=== PATIENT | female | born 1985 ===

== ENCOUNTER 2018-03-30 19:25 | Inpatient (IN) | payer OTHER ==
[2018-03-30 19:50] VITALS: BMI 31.0
[2018-03-30] MEDS ORDERED: Lactated Ringer's 1,000 ML IV ONE (19:50)
[2018-03-30] MEDS ORDERED: Lactated Ringer's 1,000 ML IV SCH (20:00)
[2018-03-30 23:11] LABS: BASO % 0.4 % (0.0-2.0); EOS % 0.6 % (0.0-4.0); HEMOGLOBIN 11.2 g/dL (12.0-16.0); LYMPH # 1.6 K/uL (1.0-4.3); LYMPH % 21.2 % (20.0-40.0); MEAN CELL VOLUME 89.3 fl (81.0-99.0); MEAN CORPUSCULAR HEMOGLOBIN 30.9 pg (27.0-31.0); MEAN CORPUSCULAR HGB CONC 34.6 g/dL (33.0-37.0); MEAN PLATELET VOLUME 9.2 fl (7.2-11.7); MONO # 0.6 K/uL (0.0-0.8); MONO % 8.2 % (0.0-10.0); NEUT # 5.2 K/uL (1.8-7.0); NEUT % 69.6 % (50.0-75.0); NRBC % 0.1 % (0.0-0.0); RBC 3.63 Mil/uL (3.80-5.20); RED CELL DISTRIBUTION WIDTH 14.3 % (11.5-14.5); WHITE BLOOD COUNT 7.5 K/uL (4.8-10.8)
--- NOTE | 2018-03-31 03:31 | OBADHP ---
Datetime: 03/31/2018 01:24 FHR - Baseline A Provider: 150 NICHD Variability Prov Fetus A: Moderate 6-25bpm NICHD Accel Fetus A IP Provider: 15X15 FHR Category Provider Fetus A: Category I NICHD Decel Fetus A IP Provider: None Datetime: 03/30/2018 19:53 Admit Comment, IP Provider: 33 yo with IUP at 38+1 based on KYM of 04/12/18 was sent to L _ D for induction of labor secondary to oligodramnios found on ultrasound. Patient follows with Dr. Infante and last appointment was last . She denies vaginal bleeding. contractions, loss of fluid and she reports good movement. Denies chest pain, shortness of breath, dysuria, nausea and vomitin g. ROS: systems reviewed and negative except for stated above in HPI. Obhx: 1 - 2011- no complications. Family hx: Mother with HTN and maternal grandmother with Pancreatic cancer. Social hx: No smoking history, drinking or illicit drug use. Surgical history: Umbilical hernia repair 1995 and Right ankle repair 2010- no complications from both surgies Allergies: N.K.D.A Medications: PNV Labs: HIV: negative HbsAG: negative Rubella: immune GBS: negative Gc/Cl: negative RPR: negative ABO: A antibody: negative TDAP: 02/16/18 Flu shot: 4 weeks ago Physical exam: Patient in no acute distress. Heart: S1 and S2 appreciated on exam. No murmurs, gallops or rubs. Lungs: Clear air entry bilaterally. Abdomen: Gravid, soft, non-tender to palpation. No CVA tenderness FHT: 150 baseline; moderate variability; acceleration 15 x 15 noted; no decelerations; category 1 tracing A/P: 33 yo with IUP at 38+1 based on KYM of 04/12/18 is here for induction of labor secondary to oligodramnios - Admit to L and D for induction of labor - Cbc - Type and Screen - 1 bolus of LR - continous monitoring. - Cervidil 10mg Vaginally for cervical ripening. Discussed case with Dr. Atkinson --Shannen Hidalgo, PGY1 Addendum: I saw and examined patient up presentation. Discussed induction process with patient all patient q uestions answered. heart tracing category 1. Pelvic Type - PN: Adequate Extremities - PN: Normal Abdomen - PN: Normal Back - PN: Normal Breast - PN: Not Done Lungs - PN: Normal Heart - PN: Normal Thyroid - PN: Not Done Neurologic - PN: Not Done HEENT - PN: Not Done General - PN: Normal Vital Signs Provider: Reviewed; Within Normal Limits IP Chief Complaint: Scheduled induction of labor Genitourinary Exam: Normal DTRs - PN: Not Done IP Adm Impression: Term, intrauterine IP Admit Plan: Admit to unit; Initiate labor induction protocol
[2018-03-31] MEDS ORDERED: Oxytocin 30 UNIT 30 UNITS/500 ML BAG IV ONE (07:56)
[2018-03-31] MEDS ORDERED: OXYTOCIN/0.9 % NS 20 UNIT/1,000 ML BAG IV SCH (08:00)
--- NOTE | 2018-03-31 13:27 | OBPN ---
Datetime: 03/31/2018 13:15 IP Progress Impression: Reassuring heart rate IP Informed Consent Obtain: Vaginal Delivery; Risks, Benefits and Alternatives Discussed IP Progress Plan: Continue present management; Induction; Cervical Ripening; Anticipate Vaginal Deli very Pool Provider: Negative Membranes, Provider: Intact Contraction Comments Provider: iireg FHR - Baseline A Provider: 140 Presentation-Admit: Vertex IP Progress Note Comment: She feels occ CTX pain - not uncomfortable SVE cervidil removed A: IUP at 38w ; Oligohydramnios PLAN: Disucssion about conitnued IOL...will start Cytotec 50mcg po q4h NICHD Accel Fetus A IP Provider: 15X15 FHR Category Provider Fetus A: Category I NICHD Variability Prov Fetus A: Moderate 6-25bpm Dilatation, Provider: 0 NICHD Decel Fetus A IP Provider: None Datetime: 03/31/2018 12:03 Vital Signs Provider: Reviewed; Within Normal Limits Datetime: 03/31/2018 01:24 IP Procedures: Sterile Vag Exam
[2018-03-31] MEDS: Lactated Ringer's 1,000 ML IV SCH (23:10)
--- NOTE | 2018-04-01 11:35 | OBPN ---
Datetime: 04/01/2018 11:35 IP Progress Impression: Reassuring heart rate IP Procedures: Sterile Vag Exam Datetime: 03/31/2018 21:28 IP Informed Consent Obtain: Induction of Labor IP Progress Plan: Cervical Ripening Contraction Comments Provider: Q3-4 min FHR - Baseline A Provider: 145 Gestation - Est Wks by US: 38.2 IP Progress Note Comment: S: Feeling regular cramping every few minutes, rates pain 4-5/10 O: see exam section A/P: 33 year old at 38.2 admitted for IOL secondary to IUGR. There has been some change in he r Rodriguez score but still not favorable for pitocin - Placed cervidil, will remove after 12 hours and hopefully start pitocin - EFM Category I, no intervention needed Augustina Olsen MD OB Fellow Attending Note: Patient was seen with the fellow and I agree with the above assessmment. Danny Vital Signs Provider: Reviewed; Within Normal Limits NICHD Accel Fetus A IP Provider: 15X15 FHR Category Provider Fetus A: Category I NICHD Variability Prov Fetus A: Moderate 6-25bpm Dilatation, Provider: 1 Effacement, Provider: 20 Station, Provider: -3 NICHD Decel Fetus A IP Provider: None
--- NOTE | 2018-04-01 11:40 | OBPN ---
Datetime: 04/01/2018 11:35 IP Procedures Other: Insertion of cooks Balloon IP Progress Plan: Continue present management FHR - Baseline A Provider: 150 Gestation - Est Wks by US: 38.3 Presentation-Admit: Vertex IP Progress Note Comment: Assessment: IUP at 38wks IOL for Oligohydramnios S/P cervidi X2, Cytotec X1 Patient refused further use of Cytotec. Plan: Cook Balloon inserted into the cervix for cervical ripening. Reevaluate in 4-6hours. NICHD Accel Fetus A IP Provider: 15X15 FHR Category Provider Fetus A: Category I NICHD Variability Prov Fetus A: Moderate 6-25bpm Dilatation, Provider: 1 Effacement, Provider: 60 Station, Provider: -3 NICHD Decel Fetus A IP Provider: None
[2018-04-01] MEDS ORDERED: Oxytocin 30 UNIT 30 UNITS/500 ML BAG IV ONE (16:24)
[2018-04-01] MEDS: Lactated Ringer's 1,000 ML IV SCH ×2 (16:37→23:30)
--- NOTE | 2018-04-01 16:45 | OBPN ---
Datetime: 04/01/2018 16:39 IP Progress Impression: Reassuring heart rate IP Procedures: Sterile Vag Exam IP Progress Plan: Continue present management; Augmentation Membranes, Provider: Intact Contraction Comments Provider: irregular FHR - Baseline A Provider: 150 Gestation - Est Wks by US: 38.3 Presentation-Admit: Vertex IP Progress Note Comment: IUP at 38weeks being induced S/p Cervidil X2, Cytotec X1 Cook balloon in place Patient reports mild contractions FHR category 1 Plan: Augmentation of labor with Pitocin May have epidural Vital Signs Provider: Reviewed NICHD Accel Fetus A IP Provider: 15X15 FHR Category Provider Fetus A: Category I NICHD Variability Prov Fetus A: Moderate 6-25bpm
--- NOTE | 2018-04-01 22:30 | OBPN ---
Datetime: 04/01/2018 22:23 IP Progress Impression: Reassuring heart rate IP Procedures: Artificial ROM; Sterile Vag Exam IP Progress Plan: Augmentation Membranes, Provider: Ruptured Amniotic Fluid Color, Provider: Clear Contraction Comments Provider: Q 2-5 FHR - Baseline A Provider: 150 Gestation - Est Wks by US: 38.3 Presentation-Admit: Vertex IP Progress Note Comment: IUP at 38+wks IOL for decreased fluid S/P Cytotec and cervidil Cook Balloon for cervical ripening fell out spontaneously SVE: 3-50/-3 AROM- done. clear fluid Plan: Continue labor augmentation with pitocin. NICHD Accel Fetus A IP Provider: 15X15 FHR Category Provider Fetus A: Category I NICHD Variability Prov Fetus A: Moderate 6-25bpm Dilatation, Provider: 3 Effacement, Provider: 50 Station, Provider: -3 NICHD Decel Fetus A IP Provider: None
[2018-04-02] MEDS ORDERED: Fentanyl/Bupivacaine HCl 250 ML EPI ONE (00:30)
[2018-04-02] MEDS: Lactated Ringer's 1,000 ML IV SCH (00:51)
[2018-04-02] MEDS ORDERED: Oxytocin 30 UNIT 30 UNITS/500 ML BAG IV ONE (04:05)
[2018-04-02] MEDS ORDERED: OXYTOCIN/0.9 % NS 20 UNIT/1,000 ML BAG IV ONE (07:39)
[2018-04-02] MEDS ORDERED: Benzocaine/Menthol SPRAY TOP PRN ×2 (09:46→15:50)
[2018-04-02] MEDS ORDERED: Oxycodone/Acetaminophen 5/325 mg Tab PO PRN ×2 (09:46→15:50)
--- NOTE | 2018-04-02 16:13 | OBDS ---
DELIVERY PERSONNEL Delivery Doctor: Shauna Delgado MD [employer] Operator: Priscilla Godfrey RN Anesthesiologist: Nam Nolan MD Resident: Dr. Elena Olsen (OB fellow) MATERNAL INFORMATION Delivery Anesthesia: Epidural Medications in Delivery: pitcoin 30units Estimated Blood Loss (ml): 150 Placenta Cultured: No Maternal Complications: None Provider Comments: 33 year old GBS negative admitted for IOL secondary to oligohydramnions. Pro gressed to normal spontaneous vaginal delivery of live female infact, position OP over intact perineu m with epidural anesthesia. Terminal meconium present, no nuchal cord. was placed on maternal abdomen and delayed cord clamping was performed. Spontaneous delivery of placenta with 3-vessel cord. See laceration repair note. EBL appropriate for vaginal delivery. Attending Note: Delivery of baby conducted with [facility] fellow and agrees with above assessment. LABOR SUMMARY EDC: 04/12/2018 00:00 No. Babies in Womb: 1 Attempted: No Labor Anesthesia: Epidural LABOR INFORMATION Reason for Induction: Oligohydramnios Onset of Labor: 04/01/2018 23:00 Complete Dilatation: 04/02/2018 06:20 Cervical Ripening Agents: Cervidil; Cytotec @; Other Other Ripening Agents: cervical Balloon Oxytocin: Induction Group B Beta Strep: Negative Antibiotics # of Doses: n/a Antibiotics Time of Last Dose: n/a Steroids Given: None Reason Steroids Not Administered: Not Applicable MEMBRANES Membranes Rupture Method: Artificial Rupture of Membranes: 04/01/2018 22:18 Length of Rupture (hrs): 11.20 Amniotic Fluid Color: Clear Amniotic Fluid Amount: Scant Amniotic Fluid Odor: Normal STAGES OF LABOR Stage 1 hrs: 7 Stage 1 min: 20 Stage 2 hrs: 3 Stage 2 min: 10 Stage 3 hrs: 0 Stage 3 min: 5 Total Time in Labor hrs: 10 Total Time in Labor min: 35 VAGINAL DELIVERY Episiotomy: None Laceration Extension: Second Degree Laceration Type: Perineal Laceration Repair: Yes Laceration Repair Note: A 2-0 Vicryl was used to repair the laceration in the usual fashion. Hemosta sis was adequate after repair. Initial Vag Sponge Count: 5 laps with rings Final Vag Sponge Count: 5 laps with ring (Annotations: Data stored by CPN on behalf of user) Initial Vag Sharps Count: 1needle, 1 suture Final Vag Sharps Count: 1 needle, 1 suture Sponge Count Correct: Yes Sharps Count Correct: Yes Count Comment: count correct and acknowldeged by Dr. Olsen BABY A INFORMATION Delivery Date/Time: 04/02/2018 09:30 Method of Delivery: Vaginal Born in Route : No : N/A Forceps: N/A Vacuum Extraction: N/A Shoulder Dystocia : No SHOULDER DYSTOCIA BABY A Infant Delivery Date/Time: 04/02/2018 09:30 PRESENTATION/POSITION BABY A Presentation: Cephalic Cephalic Presentation: Face Breech Presentation: N/A PLACENTA INFORMATION BABY A Placenta Delivery Time : 04/02/2018 09:35 Placenta Method of Delivery: Spontaneous Placenta Status: Delivered SCORES BABY A Heart Rate 1 min: >100 bpm Resp Effort 1 min: Good Cry Reflex Irritability 1 min: Cough or Sneeze or Pulls Away Muscle Tone 1 min: Active Motion Color 1 min: Body [place], Extremities Blue Resuscitation Effort 1 min: Tactile Stimulation SCORE 1 MIN: 9 Heart Rate 5 min: >100 bpm Resp Effort 5 min: Good Cry Reflex Irritability 5 min: Cough or Sneeze or Pulls Away Muscle Tone 5 min: Active Motion Color 5 min: Body [place], Extremities Blue Resuscitation Effort 5 min: N/A SCORE 5 MIN: 9 INFORMATION BABY A Gestational Age at Delivery: 38.4 Gestational Status: Term Outcome : Liveborn Condition : Stable Infant Sex: Female IDENTIFICATION/MEDS BABY A ID Band Number: [id number] ID Band Location: Left Leg; Left Arm Vitamin K Given : Not Given Erythromycin Given: Not Given WEIGHT/LENGTH BABY A Infant Birthweight (gms): 3395 Infant Weight (lb): 7 Weight (oz): 8 CORD INFORMATION BABY A No. Cord Vessels: 3 Nuchal Cord : Around Neck x1, Loose Cord Blood Taken: No Suction: None ASSESSMENT BABY A Complications: Oligohydramnios Physical Findings at Delivery: Within Normal Limits Physical Findings Other: min left thigh Respirations: Appears Normal Panel Edge Painter/ALS Called : No Infant Care By: layla Garner/gerson Garner Transferred To: Remains with Mother
[2018-04-03 06:31] LABS: BASO % 0.1 % (0.0-2.0); EOS % 0.4 % (0.0-4.0); HEMOGLOBIN 10.6 g/dL (12.0-16.0); LYMPH # 2.2 K/uL (1.0-4.3); LYMPH % 17.2 % (20.0-40.0); MEAN CELL VOLUME 89.1 fl (81.0-99.0); MEAN CORPUSCULAR HGB CONC 34.7 g/dL (33.0-37.0); MEAN PLATELET VOLUME 9.3 fl (7.2-11.7); MONO # 0.8 K/uL (0.0-0.8); MONO % 6.4 % (0.0-10.0); NEUT # 9.6 K/uL (1.8-7.0); NEUT % 75.9 % (50.0-75.0); RBC 3.42 Mil/uL (3.80-5.20); RED CELL DISTRIBUTION WIDTH 14.4 % (11.5-14.5); WHITE BLOOD COUNT 12.7 K/uL (4.8-10.8)
--- NOTE | 2018-04-03 07:02 | OBPPN ---
Datetime: 04/03/2018 07:00 PP Pain Prov: Within normal limits PP Abdomen/Uterus Prov: Normal PP Lochia Prov: Normal PP Extremities Prov: Normal PP Impression Prov: Normal progression PP Plan Prov: Continue present management PP Progress Note Prov: PPD 1 s/p VD, doing well, breast and bottle feeding Continue current care Vital Signs Provider PP: Reviewed
--- NOTE | 2018-04-04 10:48 | OBPPN ---
Datetime: 04/04/2018 10:45 PP Pain Prov: Within normal limits PP Nausea Prov: Denies PP Flatus Prov: Yes PP BM Prov: Yes PP Breasts Prov: Normal PP Heart Prov: Normal PP Lungs Prov: Normal PP Abdomen/Uterus Prov: Normal PP Lochia Prov: Normal PP Vulva/Perineum Prov: Normal PP CVA Tenderness Prov: Normal PP Extremities Prov: Normal PP Impression Prov: Normal progression PP Plan Prov: Discharge PP Progress Note Prov: She feels fine and ready yo g home H/H 04/04 A: S/P day 2 PLAN: discharge home and f/u 6w Vital Signs Provider PP: Reviewed
--- NOTE | 2018-04-04 10:48 | OBDCSUM ---
Datetime: 04/04/2018 10:46 Discharged to, Provider: Home Follow up at, Provider: [facility] Disch Instr Activity: Normal activity Disch Instr Diet: Regular Discharge Instructions, Provider: Routine instructions given Discharge Diagnosis, Provider: Term Delivered Follow up in weeks, Provider: 6w Disch Referrals: None Contraception discussed, Prov: Yes Disch Activity Restrictions: No sexual activity; Nothing in vagina - Leach, tampons, douche
[2018-04-04 18:28] VITALS: BP 108/68; PULSE 77; RESP 20; TEMP 98.1; O2SAT 99
== END 2018-04-04 13:20 | disposition home or self-care (01) | DRG 807 ==
LOC: H.EROB2 19:25 → EDSTATUS 19:37 → H.L&D 19:50 → H.OB/GYN 04-02 12:30 → UNDODISIN 04-02 12:30
PROVIDERS: ADMIT Obstetrics & Gynecology; ATTEND Obstetrics & Gynecology
PROC: 4A1HXCZ Monitoring of Products of Conception, Cardiac Rate, External Approach (ICD-10-PCS; 2018-03-30)
PROC: 10E0XZZ Delivery of Products of Conception, External Approach (ICD-10-PCS; principal; 2018-04-02)
PROC: 0KQM0ZZ Repair Perineum Muscle, Open Approach (ICD-10-PCS; 2018-04-02)
DX: O41.03X0 Oligohydramnios, third trimester, not applicable or unspecified (principal); Z37.0 Single live birth; Z3A.38 38 weeks gestation of pregnancy; O69.81X0 Labor and delivery complicated by cord around neck, without compression, not applicable or unspecified; O70.1 Second degree perineal laceration during delivery; O77.0 Labor and delivery complicated by meconium in amniotic fluid